=== PATIENT | female | born 1990 ===

== ENCOUNTER 2018-03-20 22:39 | Emergency (ER) | payer MEDICAID, OTHER ==
[2018-03-20 22:56] VITALS: BP 127/78; PULSE 105; RESP 18; TEMP 97.8; O2SAT 98
--- NOTE | 2018-03-20 23:27 | ED PDOC ---
HPI: Psych/Substance Abuse Time Seen by Provider: 03/20/18 23:02 Chief Complaint (Nursing): Alcohol Ingestion History Per: Patient Additional Complaint(s): Pt. brought in by EMS as pt.'s mother called 911 and states pt. has been drinking everyday. Pt. does admit to drinking "2 beers" today but offers no complaints. Requesting to be discharged. Denies SI/HI, hallucinations. Past Medical History Reviewed: Historical Data, Nursing Documentation, Vital Signs Vital Signs: Last Vital Signs Temp 97.8 F 03/20/18 22:52 Pulse 105 H 03/20/18 22:52 Resp 18 03/20/18 22:52 BP 127/78 03/20/18 22:52 Pulse Ox 98 03/20/18 22:52 - Medical History PMH: Denies: Diabetes, Hepatitis, HIV, HTN, Seizures, Sexually Transmitted Disease - Surgical History Surgical History: No Surg Hx - Family History Family History: States: No Known Family Hx - Social History Alcohol: > 2 Drinks/Day - Allergies Allergies/Adverse Reactions: Allergies Allergy/AdvReac Type Severity Reaction Status Date / Time No Known Allergies Allergy Verified 03/20/18 22:51 Review of Systems ROS Statement: Except As Marked, All Systems Reviewed And Found Negative Physical Exam - Physical Exam Appears: Positive for: Well, Non-toxic, No Acute Distress Head Exam: Positive for: ATRAUMATIC, NORMAL INSPECTION, NORMOCEPHALIC Skin: Positive for: Normal Color, Warm. Negative for: Rash Eye Exam: Positive for: Normal appearance Cardiovascular/Chest: Positive for: Regular Rate, Rhythm Respiratory: Positive for: Normal Breath Sounds. Negative for: Respiratory Distress Gastrointestinal/Abdominal: Positive for: Normal Exam, Soft. Negative for: Tenderness Extremity: Positive for: Normal ROM Neurologic/Psych: Positive for: Alert, Oriented (x 3), Mood/Affect (calm, cooperative, jovial), Gait (steady, unassisted). Negative for: Aphasia, Facial Droop - ECG O2 Sat by Pulse Oximetry: 98 Disposition - Clinical Impression Clinical Impression: Alcohol intoxication - Patient ED Disposition Is Patient to be Admitted: No - Disposition Disposition: Routine/Home Disposition Time: 23:08 Condition: STABLE Instructions: Alcohol Abuse and Alcoholism (DC) Forms: [employer] (Indonesian) Print Language: INDONESIAN
== END 2018-03-20 23:09 | disposition home or self-care (01) ==
LOC: H.ER 22:39
DX: F10.129 Alcohol abuse with intoxication, unspecified (principal)

== ENCOUNTER 2018-03-24 20:47 | Emergency (ER) | payer MEDICAID ==
[2018-03-24 21:02] VITALS: RESP 17
--- NOTE | 2018-03-24 22:30 | ED PDOC ---
HPI: Psych/Substance Abuse Time Seen by Provider: 03/24/18 21:34 Chief Complaint (Nursing): Alcohol Ingestion Chief Complaint (Provider): Alcohol Ingestion ED Caveat: Intoxicated History Per: Family History/Exam Limitations: intoxication Current Symptoms Are (Timing): Still Present Additional Complaint(s): Patient is a 27 year old female who presents to ED via [facility] for evaluation of alcohol ingestion. Patient admits to drinking a bottle of moscato prior to arrival. Patient currently does not have any complaints at present. However, uncle at bedside reports that her family is concerned about her depression. Patient denies any history of mental illness, but per family members , patient has a history of suicide attempts and alcohol triggers her being emotionally distraught, prompting them to call 911 tonight. Patient denies all information provided by family, stating "it's all lies, they want to send me to the [facility]". PMD: None (recently moved to [place]) Past Medical History Reviewed: Historical Data, Nursing Documentation, Vital Signs Vital Signs: Last Vital Signs Temp 97.5 F L 03/24/18 20:50 Pulse 108 H 03/24/18 20:50 Resp 17 03/24/18 20:50 BP 108/69 03/24/18 20:50 Pulse Ox 99 03/24/18 20:50 - Medical History PMH: Depression (possible) Denies: Diabetes, HTN, Seizures - Surgical History Surgical History: No Surg Hx - Family History Family History: States: Unknown Family Hx - Living Arrangements Living Arrangements: With Family (uncle) - Social History Current smoker - smoking cessation education provided: Yes Alcohol: Social Drugs: Denies - Allergies Allergies/Adverse Reactions: Allergies Allergy/AdvReac Type Severity Reaction Status Date / Time No Known Allergies Allergy Verified 03/20/18 22:51 Review of Systems ROS Statement: Except As Marked, All Systems Reviewed And Found Negative Neurological: Positive for: Other (alcohol intoxication) Psych: Positive for: Depression (possible) Physical Exam - Reviewed Nursing Documentation Reviewed: Yes Vital Signs Reviewed: Yes - Physical Exam Appears: Positive for: No Acute Distress (odor of alcohol on breath, intoxicated ) Head Exam: Positive for: ATRAUMATIC, NORMOCEPHALIC Skin: Positive for: Normal Color, Warm, Dry Eye Exam: Positive for: EOMI, PERRL ENT: Positive for: Pharynx Is (clear, uvula midline) Neck: Positive for: Painless ROM, Supple Cardiovascular/Chest: Positive for: Regular Rate, Rhythm Respiratory: Positive for: Normal Breath Sounds. Negative for: Decreased Breath Sounds, Accessory Muscle Use, Respiratory Distress Gastrointestinal/Abdominal: Positive for: Soft. Negative for: Tenderness, Mass , Distended, Guarding Back: Negative for: L CVA Tenderness, R CVA Tenderness, Vertebral Tenderness Extremity: Positive for: Normal ROM. Negative for: Deformity Neurologic/Psych: Positive for: Alert, Oriented (x3), Mood/Affect (flat), Gait ( unsteady in ED), Other (slurred speech). Negative for: Aphasia, Facial Droop - Laboratory Results Result Diagrams: 03/24/18 23:53 03/24/18 23:53 - ECG O2 Sat by Pulse Oximetry: 99 (RA) Pulse Ox Interpretation: Normal Medical Decision Making Medical Decision Making: Clinical Impression: Alcohol intoxication, Depression Plan: -1:1 observation -Crisis evaluation -Re-evaluation -Alcohol level -Accucheck -Utox -Acetaminophen, Salicylate -Upreg -CBC -CMP Urinalysis 2210 Received call from patient's brother, Michael, who states that patient's family has been trying to get her treatment for depression and alcohol abuse but have been unsuccessful. Patient's brother states the patient has tried to commit suicide/overdose multiple times in the past. 2330 Patient resting in ED stretcher and offers no additional complaints at this time. 0115 Case endorsed to Johnnie Mondragon PA-C pending crisis evaluation, lab results, and further disposition. Disposition - Clinical Impression Clinical Impression: Alcohol intoxication, Depression - Patient ED Disposition Is Patient to be Admitted: Transfer of Care - Disposition Disposition: Transfer of Care (River Mondragon at 0115 pending further disposition as per crisis and clinical sobriety) Disposition Time: 01:15 Condition: FAIR Forms: [employer] (Marshallese) - POA Present On Arrival: None Results - Lab Results Lab Results: 03/24/18 03/24/18 03/24/18 23:53 23:53 23:53 WBC 3.8 L RBC 4.07 Hgb 13.7 Hct 40.4 MCV 99.4 H MCH 33.6 H MCHC 33.8 RDW 15.4 H Plt Count 224 MPV 7.6 Neut % (Auto) 44.7 L Lymph % (Auto) 41.9 H [place] % (Auto) 12.0 H Eos % (Auto) 1.1 Baso % (Auto) 0.3 Neut # (Auto) 1.7 L Lymph # (Auto) 1.6 [place] # (Auto) 0.5 Eos # (Auto) 0.0 Baso # (Auto) 0.0 Sodium 147 Potassium 3.5 L Chloride 105 Carbon Dioxide 19 L Anion Gap 27 H BUN 12 Creatinine 0.8 Est GFR ( Amer) > 60 Est GFR (Non-Af Amer) > 60 Random Glucose 126 H Calcium 9.1 Total Bilirubin 0.2 AST 139 H ALT 114 H Alkaline Phosphatase 64 Total Protein 7.7 Albumin 4.4 Globulin 3.3 Albumin/Globulin Ratio 1.3 Salicylates < 1.0 Acetaminophen < 10.0 L Alcohol, Quantitative 343 H*
[2018-03-25 00:03] LABS: BASO % 0.3 % (0.0-2.0); EOS % 1.1 % (0.0-4.0); HEMOGLOBIN 13.7 g/dL (12.0-16.0); LYMPH # 1.6 K/uL (1.0-4.3); LYMPH % 41.9 % (20.0-40.0); MEAN CELL VOLUME 99.4 fl (81.0-99.0); MEAN CORPUSCULAR HEMOGLOBIN 33.6 pg (27.0-31.0); MEAN CORPUSCULAR HGB CONC 33.8 g/dL (33.0-37.0); MEAN PLATELET VOLUME 7.6 fl (7.2-11.7); MONO # 0.5 K/uL (0.0-0.8); NEUT # 1.7 K/uL (1.8-7.0); NEUT % 44.7 % (50.0-75.0); NRBC % 0.1 % (0.0-0.0); RBC 4.07 Mil/uL (3.80-5.20); RED CELL DISTRIBUTION WIDTH 15.4 % (11.5-14.5); WHITE BLOOD COUNT 3.8 K/uL (4.8-10.8)
[2018-03-25 00:07] LABS: ACETAMINOPHEN < 10.0 ug/ml (10.0-30.0); SALICYLATE < 1.0 mg/dl
[2018-03-25 00:11] LABS: ALB/GLOB RATIO 1.3 (1.0-2.1); ALBUMIN 4.4 g/dL (3.5-5.0); ALT/SGPT 114 U/L (9-52); AST/SGOT 139 U/L (14-36); BLOOD UREA NITROGEN 12 mg/dl (7-17); CALCIUM 9.1 mg/dL (8.4-10.2); GFR AFRICAN-AMERICAN > 60; GFR NON-AFRICAN AMERICAN > 60
--- NOTE | 2018-03-25 01:22 | ED PDOC ---
- Laboratory Results Result Diagrams: 03/24/18 23:53 03/24/18 23:53 - ECG O2 Sat by Pulse Oximetry: 99 (RA) <Johnnie Mondragon - Last Filed: 03/25/18 05:55> - Laboratory Results Result Diagrams: 03/24/18 23:53 03/24/18 23:53 <Jefferson Diggs - Last Filed: 03/25/18 06:58> - Progress ED Course And Treament: Patient alcohol level 343. Noted agitated in ED but able to be re-directed. Will observe until clinically sober and assessed by crisis for suicidal ideation (Johnnie Mondragon) Medical Decision Making <Johnnie Mondragon - Last Filed: 03/25/18 05:55> <Jefferson Diggs - Last Filed: 03/25/18 06:58> Medical Decision Makin Will endorse case to Dr. Freeman pending sobriety and crisis eval. (Jefferson Diggs) Disposition - POA Present On Arrival: None - Disposition Disposition: Transfer of Care Disposition Time: 05:54 Patient Signed Over To: Jefferson Diggs Handoff Comments: PENDING CRISIS EVAL FOR SI <Johnnie Mondragon - Last Filed: 03/25/18 05:55> - POA Present On Arrival: None - Disposition Disposition Time: 07:00 Patient Signed Over To: Braeden Freeman III <Jefferson Diggs - Last Filed: 03/25/18 06:58> - Clinical Impression Clinical Impression: Alcohol intoxication, Depression - Disposition Condition: FAIR Forms: [employer] (Upper Sorbian)
[2018-03-25 01:36] LABS: SQUAMOUS EPITHIAL 46 /hpf (0-5); URINE BILIRUBIN NEGATIVE (NEGATIVE); URINE BLOOD NEGATIVE (NEGATIVE); URINE CLARITY TURBID (Clear); URINE COLOR AMBER (YELLOW); URINE GLUCOSE (UA) NEG (Normal); URINE LEUKOCYTE ESTERASE TRACE Leu/uL (Negative); URINE PROTEIN 100 mg/dL (NEGATIVE); URINE UROBILINOGEN 0.2-1.0 mg/dL (0.2-1.0)
[2018-03-25 01:59] LABS: BARBITURATES, UR NEGATIVE (NEGATIVE); BENZODIAZEPINES, UR NEGATIVE (NEGATIVE); OPIATES, UR NEGATIVE (NEGATIVE); PHENCYCLIDINE, UR NEGATIVE (NEGATIVE)
--- NOTE | 2018-03-25 07:12 | ED PDOC ---
- Laboratory Results Result Diagrams: 03/24/18 23:53 03/24/18 23:53 - ECG O2 Sat by Pulse Oximetry: 99 (RA) Medical Decision Making Medical Decision Makin:00 -Patient endorsed to me by Dr. Diggs, pending crisis evaluation. 8am per Dr Denny cleared for discharge home Followup outpatient mental health counseling and AA services Pt improved over course of ED stay. Denies current SI. Disposition - Clinical Impression Clinical Impression: Alcohol intoxication, Depression - POA Present On Arrival: None - Disposition Referrals: Alcoholics Anonymous [Outside] [facility] [Outside] Disposition: Routine/Home Disposition Time: 08:02 Condition: FAIR Instructions: Depression, Alcohol Abuse and Alcoholism (DC) Forms: [employer] (Zimbabwean)
[2018-03-25 08:22] VITALS: BP 126/66; PULSE 63; TEMP 97.8
[2018-03-25 08:26] VITALS: O2SAT 99
== END 2018-03-25 08:15 | disposition home or self-care (01) ==
LOC: H.ER 20:47
DX: F10.129 Alcohol abuse with intoxication, unspecified (principal); F17.200 Nicotine dependence, unspecified, uncomplicated; F32.9 Major depressive disorder, single episode, unspecified

== ENCOUNTER 2018-04-04 15:26 | Emergency (ER) | payer MEDICAID ==
--- NOTE | 2018-04-04 15:49 | ED PDOC ---
HPI: Psych/Substance Abuse Time Seen by Provider: 04/04/18 15:38 Chief Complaint (Nursing): Alcohol Ingestion Chief Complaint (Provider): Alcohol Ingestion History Per: Patient History/Exam Limitations: no limitations Modifying Factor(s): Alcohol Additional Complaint(s): 28 y/o female is brought to the ED by police for alcohol intoxication. Patient had altercation with her mother at home about her new boyfriend. Mother called police to have her removed from the house. Patient is requesting something to eat. Patient has a steady gait. Denies homicidal or suicidal ideation. Denies any further medical complaints. PMD: none Past Medical History Reviewed: Historical Data, Nursing Documentation, Vital Signs Vital Signs: Last Vital Signs Temp 98.0 F 04/04/18 15:30 Pulse 111 H 04/04/18 15:30 Resp 16 04/04/18 15:30 BP 111/64 04/04/18 15:30 Pulse Ox 96 04/04/18 15:30 - Medical History PMH: Depression (possible) Denies: Diabetes, Hepatitis, HIV, HTN, Seizures, Sexually Transmitted Disease - Surgical History Surgical History: No Surg Hx - Family History Family History: States: Unknown Family Hx - Allergies Allergies/Adverse Reactions: Allergies Allergy/AdvReac Type Severity Reaction Status Date / Time No Known Allergies Allergy Verified 04/04/18 15:30 Review of Systems ROS Statement: Except As Marked, All Systems Reviewed And Found Negative (As per HPI, otherwise negative) Psych: Positive for: Other (alcohol intoxication). Negative for: Suicidal ideation (or homicidal ideation) Physical Exam - Reviewed Nursing Documentation Reviewed: Yes Vital Signs Reviewed: Yes - Physical Exam Appears: Positive for: No Acute Distress Skin: Positive for: Normal Color Eye Exam: Positive for: Normal appearance Neck: Positive for: Normal Back: Positive for: Normal Inspection Extremity: Positive for: Normal ROM. Negative for: Deformity Neurologic/Psych: Positive for: Alert, Oriented, Gait (steady) - ECG O2 Sat by Pulse Oximetry: 96 (RA) Pulse Ox Interpretation: Normal Disposition - Clinical Impression Clinical Impression: Alcohol ingestion - Patient ED Disposition Is Patient to be Admitted: No - Disposition Referrals: [facility] [Outside] Disposition: Routine/Home Disposition Time: 19:16 Condition: FAIR Instructions: Alcohol Poisoning (DC) Forms: [employer] (Yakut)
[2018-04-04 19:47] VITALS: BP 128/72; PULSE 76; RESP 18; TEMP 98; O2SAT 99
== END 2018-04-04 19:48 | disposition home or self-care (01) ==
LOC: H.ER 15:26
DX: F10.10 Alcohol abuse, uncomplicated (principal)

== ENCOUNTER 2018-04-26 20:45 | Emergency (ER) | payer MEDICAID ==
[2018-04-26 20:49] VITALS: BP 111/73; PULSE 82; RESP 16; TEMP 98.6; O2SAT 99
--- NOTE | 2018-04-26 21:10 | ED PDOC ---
HPI: General Adult Time Seen by Provider: 04/26/18 20:56 Chief Complaint (Nursing): Medical Clearance Chief Complaint (Provider): clearance for incarceration History Per: Other ([facility]) Additional Complaint(s): 28 y/o female here in police custody for clearance for incarceration. Patient intoxicated, refusing to answer questions or cooperate Past Medical History Reviewed: Historical Data, Nursing Documentation, Vital Signs Vital Signs: Last Vital Signs Temp 98.6 F 04/26/18 20:47 Pulse 82 04/26/18 20:47 Resp 16 04/26/18 20:47 BP 111/73 04/26/18 20:47 Pulse Ox 99 04/26/18 21:10 - Medical History PMH: Depression (possible) Denies: Diabetes, Hepatitis, HIV, HTN, Seizures, Sexually Transmitted Disease - Family History Family History: States: Unknown Family Hx - Allergies Allergies/Adverse Reactions: Allergies Allergy/AdvReac Type Severity Reaction Status Date / Time No Known Allergies Allergy Verified 04/04/18 15:30 Review of Systems ROS Statement: Except As Marked, All Systems Reviewed And Found Negative Physical Exam - Reviewed Nursing Documentation Reviewed: Yes Vital Signs Reviewed: Yes - Physical Exam Appears: Positive for: Well, Non-toxic, No Acute Distress Head Exam: Positive for: ATRAUMATIC, NORMAL INSPECTION, NORMOCEPHALIC Skin: Positive for: Normal Color Eye Exam: Positive for: Normal appearance ENT: Positive for: Normal ENT Inspection Cardiovascular/Chest: Positive for: Regular Rate, Rhythm Respiratory: Positive for: Normal Breath Sounds Gastrointestinal/Abdominal: Positive for: Normal Exam Back: Positive for: Normal Inspection Extremity: Positive for: Normal ROM Neurologic/Psych: Positive for: Alert, Oriented, Other (slurred speech, +AOB) - ECG O2 Sat by Pulse Oximetry: 99 - Progress ED Course And Treament: accucheck, alcohol level 00:30 Patient awake, alert, oriented x3. Ambulating steady gait. Patient offers no acute medical or psychiatric complaints Patient evaluated by marquetry worker; cleared for discharge as per Dr. Denny Disposition - Clinical Impression Clinical Impression: Adjustment disorder, Alcohol intoxication - Patient ED Disposition Is Patient to be Admitted: No Counseled Patient/Family Regarding: Studies Performed, Diagnosis, Need For Followup - Disposition Disposition: Discharged/Transfer to Law Enforcement Disposition Time: 00:42 Condition: STABLE Additional Instructions: Patient medically and psychiatrically cleared for incarceration Instructions: Alcohol Use - When Is Drinking a Problem?, Adjustment Disorder Forms: [employer] (Palauan)
== END 2018-04-27 00:41 ==
LOC: H.ER 20:45
DX: F10.129 Alcohol abuse with intoxication, unspecified (principal); F43.20 Adjustment disorder, unspecified

== ENCOUNTER 2018-05-26 18:55 | Emergency (ER) | payer MEDICAID ==
[2018-05-26 20:02] VITALS: O2SAT 97
[2018-05-26 20:06] LABS: BARBITURATES, UR NEGATIVE (NEGATIVE); BENZODIAZEPINES, UR NEGATIVE (NEGATIVE); OPIATES, UR NEGATIVE (NEGATIVE); PHENCYCLIDINE, UR POSITIVE (NEGATIVE)
--- NOTE | 2018-05-26 20:39 | ED PDOC ---
HPI: Psych/Substance Abuse Time Seen by Provider: 05/26/18 19:05 Chief Complaint (Nursing): Alcohol Ingestion Chief Complaint (Provider): Intoxication ED Caveat: Intoxicated History Per: Patient, EMS History/Exam Limitations: intoxication Onset/Duration Of Symptoms: Mins Current Symptoms Are (Timing): Still Present Modifying Factor(s): Alcohol Additional Complaint(s): 28 year old female presents to the ED via EMS for intoxication. EMS reports patient was found naked at home. Patient is uncooperative and cursing at staff. History limited due to intoxication. PMD: none Past Medical History Reviewed: Historical Data, Nursing Documentation, Vital Signs, Unable To Obtain Vital Signs: Last Vital Signs Temp 98.2 F 05/26/18 18:57 Pulse 88 05/26/18 19:45 Resp 16 05/26/18 19:45 BP 96/70 L 05/26/18 19:45 Pulse Ox 97 05/26/18 19:45 - Medical History PMH: Depression (possible) Denies: Diabetes, Hepatitis, HIV, HTN, Seizures, Sexually Transmitted Disease - Family History Family History: States: Unknown Family Hx - Social History Current smoker - smoking cessation education provided: No Alcohol: Social Drugs: Denies - Allergies Allergies/Adverse Reactions: Allergies Allergy/AdvReac Type Severity Reaction Status Date / Time No Known Allergies Allergy Verified 04/04/18 15:30 Review of Systems Review Of Systems: ROS cannot be obtained secondary to pt's inabilty to answer questions. Psych: Positive for: Other (intoxication) Physical Exam - Reviewed Nursing Documentation Reviewed: Yes Vital Signs Reviewed: Yes - Physical Exam Appears: Positive for: Non-toxic, No Acute Distress Head Exam: Positive for: ATRAUMATIC, NORMOCEPHALIC Skin: Positive for: Normal Color, Warm, Dry Eye Exam: Positive for: Normal appearance Neck: Positive for: Normal, Painless ROM Cardiovascular/Chest: Positive for: Regular Rate, Rhythm. Negative for: Murmur Respiratory: Positive for: Normal Breath Sounds. Negative for: Wheezing, Respiratory Distress Extremity: Positive for: Normal ROM Neurologic/Psych: Positive for: Alert, Oriented. Negative for: Motor/Sensory Deficits - ECG O2 Sat by Pulse Oximetry: 97 (RA) Pulse Ox Interpretation: Normal Medical Decision Making Medical Decision Making: Initial Impression: Intoxication Initial Plan: Alcohol serum Drug screen HCG Ativan 2mg IM Haloperidol Lactate 5mg IM Restraints Scribe Attestation: Documented by Carlos Issa acting as a scribe for [place] Arango MD. Provider Scribe Attestation: All medical record entries made by the Scribe were at my direction and personally dictated by me. I have reviewed the chart and agree that the record accurately reflects my personal performance of the history, physical exam, medical decision making, and the department course for this patient. I have also personally directed, reviewed, and agree with the discharge instructions and disposition. Disposition - Clinical Impression Clinical Impression: Alcohol abuse, Drug abuse - Disposition Referrals: Alcoholics Anonymous [Outside] Disposition: Transfer of Care Disposition Time: 00:00 Condition: STABLE Instructions: Drug Abuse and Drug Addiction (DC), Alcohol Abuse and Alcoholism (DC) Forms: [employer] (Tamazight) Patient Signed Over To: Jefferson Diggs
--- NOTE | 2018-05-27 05:24 | ED PDOC ---
- ECG O2 Sat by Pulse Oximetry: 97 (RA) Pulse Ox Interpretation: Normal Medical Decision Making Medical Decision Making: Time: 00:00 Patient was signed out to me by Dr. Arango pending clinical sobriety. 1:30 Patient sleeping comfortably no acute changes noted. 3:00 Patient is still sleeping comfortably in ED with no acute changes noted. 5:00 She is still sleeping in the ED with no changes in status. 6:30 Patient is now awake, alert, steady gait. Will d/c home. Scribe Attestation: Documented by, Ghada Pastor acting as a scribe for Jefferson Diggs MD. Provider Scribe Attestation: All medical record entries made by the Scribe were at my direction and personally dictated by me. I have reviewed the chart and agree that the record accurately reflects my personal performance of the history, physical exam, medical decision making, and the department course for this patient. I have also personally directed, reviewed, and agree with the discharge instructions and disposition. Disposition - Clinical Impression Clinical Impression: Alcohol abuse, Drug abuse - POA Present On Arrival: None - Disposition Referrals: Alcoholics Anonymous [Outside] Disposition: Routine/Home Disposition Time: 06:42 Condition: IMPROVED Instructions: Alcohol Abuse and Alcoholism (DC), Drug Abuse and Drug Addiction (DC) Forms: [employer] (Danish)
[2018-05-27 06:26] VITALS: BP 103/71; PULSE 88; RESP 18; TEMP 98.6
== END 2018-05-27 07:15 | disposition home or self-care (01) ==
LOC: H.ER 18:55
DX: F10.10 Alcohol abuse, uncomplicated (principal); Y90.8 Blood alcohol level of 240 mg/100 ml or more
CPT/HCPCS: 80320; 80324; 80345; 80346; 80349; 80353; 80358; 80361; 81025; 83992; 84703; 96372; 99285; J1630; J2060

== ENCOUNTER 2018-07-31 23:56 | Emergency (ER) | payer MEDICAID ==
[2018-07-31 23:59] VITALS: BP 134/68; PULSE 90; RESP 16; TEMP 98.2; O2SAT 97
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
== END 2018-08-01 02:34 ==
LOC: H.ER 23:56
DX: F10.129 Alcohol abuse with intoxication, unspecified (principal); Y90.8 Blood alcohol level of 240 mg/100 ml or more

== ENCOUNTER 2018-08-15 23:58 | Emergency (ER) | payer MEDICAID ==
[2018-08-16 01:16] VITALS: BP 108/71; PULSE 85; RESP 16; TEMP 98.4; O2SAT 98
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
[2018-08-16 03:19] LABS: SQUAMOUS EPITHIAL < 1 /hpf (0-5); URINE BILIRUBIN NEGATIVE (NEGATIVE); URINE BLOOD NEGATIVE (NEGATIVE); URINE CLARITY CLEAR (Clear); URINE COLOR COLORLESS (YELLOW); URINE GLUCOSE (UA) NEG (Normal); URINE LEUKOCYTE ESTERASE NEG Leu/uL (Negative); URINE PROTEIN NEGATIVE (NEGATIVE); URINE UROBILINOGEN 0.2-1.0 mg/dL (0.2-1.0)
[2018-08-16 03:23] LABS: BASO % 0.6 % (0.0-2.0); EOS # 0.2 K/uL (0.0-0.7); EOS % 3.7 % (0.0-4.0); LYMPH # 2.3 K/uL (1.0-4.3); LYMPH % 50.3 % (20.0-40.0); MEAN CELL VOLUME 98.3 fl (81.0-99.0); MEAN CORPUSCULAR HEMOGLOBIN 34.4 pg (27.0-31.0); MEAN PLATELET VOLUME 7.3 fl (7.2-11.7); MONO # 0.4 K/uL (0.0-0.8); MONO % 9.6 % (0.0-10.0); NEUT # 1.6 K/uL (1.8-7.0); NEUT % 35.8 % (50.0-75.0); NRBC % 0.2 % (0.0-0.0); RBC 4.07 Mil/uL (3.80-5.20); RED CELL DISTRIBUTION WIDTH 13.2 % (11.5-14.5); WHITE BLOOD COUNT 4.6 K/uL (4.8-10.8)
[2018-08-16 03:28] LABS: ALB/GLOB RATIO 1.3 (1.0-2.1); ALBUMIN 4.1 g/dL (3.5-5.0); ALT/SGPT 67 U/L (9-52); AST/SGOT 50 U/L (14-36); BLOOD UREA NITROGEN 9 mg/dl (7-17); CALCIUM 8.7 mg/dL (8.4-10.2); GFR NON-AFRICAN AMERICAN > 60
[2018-08-16] MEDS ORDERED: Sodium Chloride 0.9% 50 ML IV ONE (03:44)
[2018-08-16] MEDS ORDERED: Iohexol 300 100 ML IJ ONE (03:44)
[2018-08-16 03:45] LABS: BARBITURATES, UR NEGATIVE (NEGATIVE); BENZODIAZEPINES, UR POSITIVE (NEGATIVE); OPIATES, UR NEGATIVE (NEGATIVE); PHENCYCLIDINE, UR POSITIVE (NEGATIVE)
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
== END 2018-08-16 06:23 | disposition home or self-care (01) ==
LOC: H.ER 23:58
DX: F10.129 Alcohol abuse with intoxication, unspecified (principal); S09.90XA Unspecified injury of head, initial encounter; S13.4XXA Sprain of ligaments of cervical spine, initial encounter; S20.219A Contusion of unspecified front wall of thorax, initial encounter; Y04.0XXA Assault by unarmed brawl or fight, initial encounter; Y92.89 Other specified places as the place of occurrence of the external cause; Z04.41 Encounter for examination and observation following alleged adult rape; F32.9 Major depressive disorder, single episode, unspecified; I10 Essential (primary) hypertension
CPT/HCPCS: 70450; 70486; 71260; 72125; 74177; 80053; 80320; 80324; 80345; 80346; 80349; 80353; 80358; 80361; 81003; 81025; 83992; 85025; 96374; 99284; J1885; Q9967

== ENCOUNTER 2018-08-17 08:55 | Emergency (ER) | payer MEDICAID ==
[2018-08-17 08:57] VITALS: TEMP 97.6; BMI 29.2
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
[2018-08-17 16:12] VITALS: O2SAT 97
--- NOTE | 2018-08-17 16:34 | ED PDOC ---
- ECG O2 Sat by Pulse Oximetry: 97 (RA) Pulse Ox Interpretation: Normal Medical Decision Making Medical Decision Makin Received endorsement from Dr. Garrison pending sobriety. Patient is intoxicated and was initially treated for alcohol psychosis. 1630 Patient is awake, alert and oriented x3 with no signs of withdrawal. Patient is stable for discharge. Resources given for alcohol addiction. Scribe Attestation: Documented by Kaitlyn Caceres, acting as a scribe for Kelsi Ramires MD. Provider Scribe Attestation: All medical record entries made by the Scribe were at my direction and personally dictated by me. I have reviewed the chart and agree that the record accurately reflects my personal performance of the history, physical exam, medical decision making, and the department course for this patient. I have also personally directed, reviewed, and agree with the discharge instructions and disposition. Disposition - Clinical Impression Clinical Impression: Alcohol abuse with intoxication - POA Present On Arrival: None - Disposition Disposition: Routine/Home Disposition Time: 16:30 Condition: IMPROVED Instructions: Alcohol Abuse and Alcoholism (DC)
[2018-08-17 16:44] VITALS: BP 110/60; PULSE 70; RESP 15
== END 2018-08-17 16:40 | disposition home or self-care (01) ==
LOC: H.ER 08:55
DX: F10.129 Alcohol abuse with intoxication, unspecified (principal); F32.9 Major depressive disorder, single episode, unspecified; F41.9 Anxiety disorder, unspecified; I10 Essential (primary) hypertension
CPT/HCPCS: 80320; 82948; 96372; 99282; J1630; J2060

== ENCOUNTER 2019-01-21 23:03 | Emergency (ER) | payer MEDICAID ==
[2019-01-21 23:03] VITALS: BMI 29.2
[2019-01-21 23:15] VITALS: BP 107/71; RESP 18; TEMP 98.3; O2SAT 98
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
[2019-01-22 02:04] VITALS: PULSE 90
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
== END 2019-01-22 01:50 | disposition home or self-care (01) ==
LOC: H.ER 23:03
DX: S09.90XA Unspecified injury of head, initial encounter (principal); S70.00XA Contusion of unspecified hip, initial encounter; F17.200 Nicotine dependence, unspecified, uncomplicated; Z86.59 Personal history of other mental and behavioral disorders; I10 Essential (primary) hypertension

== ENCOUNTER 2019-02-09 18:49 | Emergency (ER) | payer MEDICAID ==
[2019-02-09 18:49] VITALS: BMI 29.2
[2019-02-09 18:52] VITALS: RESP 16
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
--- NOTE | 2019-02-09 20:34 | ED PDOC ---
- ECG O2 Sat by Pulse Oximetry: 99 - Progress ED Course And Treament: Case endorsed to web content writer from [facility] pending sobriety 20:15 Patient agitated, yelling at staff; attempting to get out of stretcher with unsteady gait Attempts at de-escalation unsuccessful; patient medicated for acute agitati on/safety 21:30 Patient sleeping; no distress 23:00 Patient sleeping; no distress 02/10/2019 00:30 Patient sleeping; no distress 2:00 Patient sleeping; no distress 3:30 Patient sleeping; no distress 5:00 Patient awake, alert, oriented x3. Ambulating steady gait Stable for discharge Disposition - Clinical Impression Clinical Impression: Alcohol abuse - POA Present On Arrival: None - Disposition Disposition: Routine/Home Disposition Time: 04:43 Condition: STABLE Instructions: Alcohol Abuse and Alcoholism (DC) Print Language: BOTSWANAN
[2019-02-10 04:46] VITALS: O2SAT 99
[2019-02-10 04:51] VITALS: BP 104/57; PULSE 92; TEMP 98.2
== END 2019-02-10 06:38 | disposition home or self-care (01) ==
LOC: H.ER 18:49
DX: F10.19 Alcohol abuse with unspecified alcohol-induced disorder (principal); Y90.8 Blood alcohol level of 240 mg/100 ml or more; I10 Essential (primary) hypertension
CPT/HCPCS: 80320; 82948; 96372; 99284; J2060

== ENCOUNTER 2019-02-24 17:59 | Emergency (ER) | payer MEDICAID ==
[2019-02-24 17:59] VITALS: BMI 29.2
[2019-02-24 18:12] VITALS: O2SAT 99
--- NOTE | 2019-02-24 18:27 | ED PDOC ---
HPI: Psych/Substance Abuse Time Seen by Provider: 02/24/19 18:00 Chief Complaint (Nursing): Alcohol Ingestion Chief Complaint (Provider): Alcohol Intoxication History Per: Patient History/Exam Limitations: no limitations Additional Complaint(s): 28 year old female presents to the ED via EMS for evaluation of alcohol intoxication. Patient is stating she wants to go home and see her mom in [place]. Admits to drinking and smoking cigarettes today. Otherwise, denies pain, falls, and dizziness. PMD: none provided Past Medical History Reviewed: Historical Data, Nursing Documentation, Vital Signs Vital Signs: Last Vital Signs Temp 98.6 F 02/24/19 18:07 Pulse 113 H 02/24/19 18:07 Resp 20 02/24/19 18:07 BP 115/60 02/24/19 18:07 Pulse Ox 99 02/24/19 18:07 - Medical History PMH: Anxiety, Depression, HTN Denies: Diabetes, Hepatitis, HIV, Seizures, Sexually Transmitted Disease - Surgical History Surgical History: (x 2) - Family History Family History: States: Unknown Family Hx - Social History Current smoker - smoking cessation education provided: Yes Alcohol: Social - Immunization History Hx Tetanus Toxoid Vaccination: No Hx Influenza Vaccination: No Hx Pneumococcal Vaccination: No - Home Medications Home Medications: Ambulatory Orders Medication Instructions Recorded Naproxen [Naprosyn] 500 mg PO BID PRN #10 tab 01/22/19 - Allergies Allergies/Adverse Reactions: Allergies Allergy/AdvReac Type Severity Reaction Status Date / Time No Known Allergies Allergy Verified 02/09/19 18:50 Review of Systems ROS Statement: Except As Marked, All Systems Reviewed And Found Negative Neurological: Negative for: Dizziness Psych: Positive for: Other (alcohol intoxication) Physical Exam - Reviewed Nursing Documentation Reviewed: Yes Vital Signs Reviewed: Yes - Physical Exam Appears: Positive for: No Acute Distress Head Exam: Positive for: ATRAUMATIC, NORMOCEPHALIC Skin: Positive for: Normal Color Eye Exam: Positive for: Normal appearance Neck: Positive for: Normal, Painless ROM Cardiovascular/Chest: Positive for: Regular Rate, Rhythm Respiratory: Positive for: Normal Breath Sounds. Negative for: Respiratory Distress Gastrointestinal/Abdominal: Positive for: Normal Exam Extremity: Positive for: Normal ROM Neurological/Psych: Positive for: Awake, Alert, Oriented (x3), Gait (steady, unassisted), incident engineer II-XII. Negative for: Lethargic, Facial Droop - ECG O2 Sat by Pulse Oximetry: 99 (RA) Pulse Ox Interpretation: Normal Medical Decision Making Medical Decision Making: Time: 1834 Initial Impression: alcohol intoxication Initial Plan: --Patient is aaox3 with a normal physical and steady gait. She does not want to stay, and wishes to leave and go home to her mom in [place]. Patient answered all orientation questions correctly and normally.she admits to drinking alcohol. denies falling or head trauma. her neurologic exam is normal. She says that she is taking a taxi or the light rail to her mom's house in [place]. Stable for discharge. ---- Scribe Attestation: Documented by Cee Cotton, acting as a scribe for Rene Rose MD. Provider Scribe Attestation: All medical record entries made by the Scribe were at my direction and personally dictated by me. I have reviewed the chart and agree that the record accurately reflects my personal performance of the history, physical exam, medical decision making, and the department course for this patient. I have also personally directed, reviewed, and agree with the discharge instructions and d isposition. Disposition - Clinical Impression Clinical Impression: Alcohol intoxication - Patient ED Disposition Is Patient to be Admitted: No Counseled Patient/Family Regarding: Studies Performed, Diagnosis, Need For Followup - Disposition Disposition: Routine/Home Disposition Time: 18:35 Condition: IMPROVED Additional Instructions: follow up with your doctor return to the ED with any worsening or concerning symptoms Instructions: Alcohol Use - When Is Drinking a Problem? Forms: 1-4 All (Kinyarwanda)
[2019-02-24 19:40] VITALS: BP 122/68; PULSE 96; RESP 18; TEMP 98.1
== END 2019-02-24 18:45 | disposition home or self-care (01) ==
LOC: H.ER 17:59
DX: F10.129 Alcohol abuse with intoxication, unspecified (principal)

== ENCOUNTER 2019-03-20 20:24 | Emergency (ER) | payer MEDICAID ==
[2019-03-20 20:24] VITALS: BMI 29.2
[2019-03-20 20:27] VITALS: TEMP 98.9
--- NOTE | 2019-03-20 21:00 | ED PDOC ---
HPI: Psych/Substance Abuse Time Seen by Provider: 03/20/19 20:32 Chief Complaint (Nursing): Alcohol Ingestion Chief Complaint (Provider): Alcohol ingestion ED Caveat: Intoxicated History Per: Patient, EMS History/Exam Limitations: intoxication Onset/Duration Of Symptoms: Mins (just prior to arrival) Current Symptoms Are (Timing): Still Present Severity: Moderate Additional Complaint(s): 28 year old female with no pertinent past medical history is brought into the ED by EMS for public intoxication. Patient is uncooperative in the ED, attempting to elope. Patient demonstrating poor judgment. Despite 1:1 and nurse staffing's attempt to redirect patient to her room, patient is attempting to run out of the ED. Past Medical History Reviewed: Historical Data, Nursing Documentation, Vital Signs Vital Signs: Last Vital Signs Temp 98.9 F 03/20/19 20:26 Pulse 116 H 03/20/19 20:26 Resp 16 03/20/19 20:26 BP 138/77 03/20/19 20:26 Pulse Ox 98 03/20/19 20:26 CAROLYN Report Viewed: Yes - Medical History PMH: Anxiety, Depression, HTN Denies: Diabetes, Hepatitis, HIV, Seizures, Sexually Transmitted Disease - Surgical History Surgical History: (x 2) - Family History Family History: States: No Known Family Hx - Immunization History Hx Tetanus Toxoid Vaccination: No Hx Influenza Vaccination: No Hx Pneumococcal Vaccination: No - Home Medications Home Medications: Ambulatory Orders Medication Instructions Recorded Naproxen [Naprosyn] 500 mg PO BID PRN #10 tab 01/22/19 - Allergies Allergies/Adverse Reactions: Allergies Allergy/AdvReac Type Severity Reaction Status Date / Time No Known Allergies Allergy Verified 03/20/19 20:28 Review of Systems Review Of Systems: ROS cannot be obtained secondary to pt's inabilty to answer questions. Physical Exam - Reviewed Nursing Documentation Reviewed: Yes Vital Signs Reviewed: Yes - Physical Exam Appears: Positive for: Non-toxic, No Acute Distress Head Exam: Positive for: ATRAUMATIC, NORMOCEPHALIC Skin: Positive for: Normal Color, Warm, Dry Cardiovascular/Chest: Positive for: Regular Rate, Rhythm Respiratory: Positive for: Normal Breath Sounds Neurological/Psych: Positive for: Awake, Alert, Oriented (3x), Gait (unsteady), Other (slurred speech) - Laboratory Results Result Diagrams: 03/20/19 21:18 05/05/19 21:18 - ECG O2 Sat by Pulse Oximetry: 98 (RA) Pulse Ox Interpretation: Normal - Critical Care Total Time (In Min): 30 Medical Decision Making Medical Decision Makin:32 Initial impression: 28 year old female with alcoholic delirium Initial plan: Patient is displaying alcoholic delirium, is not making appropriate decisions for self, is agitated, combative and a physical threat to self and others. ativan and haldol were administered for relief of agitation and physical restraints were required for patient and staff safety, patient placed under 1:1 observation. * alcohol serum * CMP * drug screen urine * lipase * upreg * udip * CBC with differential * reevaluation 21:30 Patient is now resting comfortably with stable vitals. 22:30 Patient remains calm and in no distress. 23:30 Patient is resting in ED bed. Vitals within normal limits. 00:30 Patient is calm and cooperative. Offers no medical complaints. 01:30 Patient remains in no distress and without complaints. 02:30 Patient is resting in ED bed. Vitals within normal limits. 03:30 Patient remains under 1:1 observation. She is still calm and in no distress. 04:30 Patient is now resting comfortably with stable vitals. 06:00 Patient is alert, oriented and communicative. She is stable for discharge in the company of brother. ----- ScribeAttestation: Documented byDahlia Crews, acting as a scribe for Juan A Prieto MD. Provider ScribeAttestation: All medical record entries made by the Scribe were at my direction and perso nickolas dictated by me. I have reviewed the chart and agree that the record accurately reflects my personal performance of the history, physical exam, medical decision making, and the department course for this patient. I have also personally directed, reviewed, and agree with the discharge instructions and disposition. Disposition - Clinical Impression Clinical Impression: Alcohol abuse with intoxication delirium - Patient ED Disposition Is Patient to be Admitted: No - Disposition Disposition: Routine/Home Disposition Time: 06:05 Condition: STABLE Instructions: Alcohol Use - When Is Drinking a Problem?, Effects of Alcohol on Your Health Forms: [employer] (Ghanaian)
[2019-03-20 21:26] LABS: BASO % 0.2 % (0.0-2.0); EOS % 1.4 % (0.0-4.0); HEMOGLOBIN 13.7 g/dL (12.0-16.0); LYMPH # 1.7 K/uL (1.0-4.3); LYMPH % 49.3 % (20.0-40.0); MEAN CELL VOLUME 101.2 fl (81.0-99.0); MEAN CORPUSCULAR HEMOGLOBIN 34.5 pg (27.0-31.0); MEAN CORPUSCULAR HGB CONC 34.1 g/dL (33.0-37.0); MEAN PLATELET VOLUME 7.2 fl (7.2-11.7); MONO # 0.3 K/uL (0.0-0.8); MONO % 9.2 % (0.0-10.0); NEUT # 1.4 K/uL (1.8-7.0); NEUT % 39.9 % (50.0-75.0); NRBC % 0.1 % (0.0-0.0); RBC 3.96 Mil/uL (3.80-5.20); RED CELL DISTRIBUTION WIDTH 13.4 % (11.5-14.5); WHITE BLOOD COUNT 3.5 K/uL (4.8-10.8)
[2019-03-20 21:32] LABS: BARBITURATES, UR NEGATIVE (NEGATIVE); BENZODIAZEPINES, UR NEGATIVE (NEGATIVE); OPIATES, UR NEGATIVE (NEGATIVE); PHENCYCLIDINE, UR POSITIVE (NEGATIVE)
[2019-03-20 21:53] LABS: BLOOD UREA NITROGEN 6 mg/dl (7-17); GFR NON-AFRICAN AMERICAN > 60
[2019-03-20 21:54] LABS: ALB/GLOB RATIO 1.3 (1.0-2.1); ALBUMIN 4.4 g/dL (3.5-5.0); ALT/SGPT 166 U/L (9-52); AST/SGOT 271 U/L (14-36); CALCIUM 8.7 mg/dL (8.4-10.2); LIPASE 94 U/L (23-300)
[2019-03-21 04:22] VITALS: RESP 18
[2019-03-21 07:13] VITALS: BP 105/55; PULSE 90; O2SAT 100
== END 2019-03-21 05:58 | disposition home or self-care (01) ==
LOC: H.ER 20:24
DX: F10.121 Alcohol abuse with intoxication delirium (principal); F32.9 Major depressive disorder, single episode, unspecified; F41.9 Anxiety disorder, unspecified; I10 Essential (primary) hypertension
CPT/HCPCS: 80053; 80320; 80324; 80345; 80346; 80349; 80353; 80358; 80361; 81025; 83690; 83992; 85025; 96372; 99284; J1630; J2060